=== PATIENT | male | born 1960 | race Caucasian/White ===

== ENCOUNTER → 2016-07-13 | Outpatient (CLI) | payer BC ==
[~2016-07-13] MED LIST: CARVEDILOL6.25 MG PO; FLONASE 0.05% N16 GM; IBUPROFEN200 MG PO; LEVAQUIN500 MG PO; LEVOFLOXACIN500 MG PO; LORATADINE10 MG PO; RAMIPRIL2.5 MG PO; THIAMINE HCL50 MG PO; TYLENOL W/CODEIN1 E1 PO
== END ==
LOC: HEART 5 08:32
DX: I20.9 Angina pectoris, unspecified (principal)
CPT/HCPCS: 78452; A9502; J2785

== ENCOUNTER 2016-07-27 10:22 | Emergency (ER) | payer BC | END 2016-07-27 11:45 | disposition home or self-care (01) | LOC: ER1 10:22 | DX: I10 Essential (primary) hypertension (principal) | CPT/HCPCS: 99283 ==